=== PATIENT | male | born 1980 | race Hispanic/Latino ===

== ENCOUNTER 2017-11-11 23:05 | Emergency (ER) | payer BC, MEDICAID ==
[2017-11-12] MEDS ORDERED: DIATR MEGLU/DIATRIZOATE SODIUM 30 ML BOTTLE ONE (00:24)
== END 2017-11-12 01:55 | disposition home or self-care (01) ==
LOC: EDH 23:05
DX: K94.23 Gastrostomy malfunction (principal); M41.9 Scoliosis, unspecified
CPT/HCPCS: 43760; 74018; 99284; Q9963